=== PATIENT | female | born 1935 | race Caucasian/White ===

== ENCOUNTER 2017-04-23 10:28 | Inpatient (IN) | payer MEDICARE, OTHER ==
[~2017-04-23] VITALS: Ht 167.6 cm; Wt 65.0 kg
[2017-04-23] VITALS (7 sets, daily range): BP systolic 152–194; BP diastolic 71–92; PULSE 50–72; RESP 17–18; TEMP 98; Ht 167.6 cm; Wt 65.0 kg
[2017-04-23] MEDS ORDERED: PIPER-TAZO 3.375 GM IV (PMX) 100 ML ONE (10:57)
[2017-04-23] MEDS ORDERED: VANCOMYCIN 1 GM (PMX) 250 ML ONE (10:57)
[2017-04-23] MEDS ORDERED: LORAZEPAM 2 MG INJ ONE (11:15)
[2017-04-23 11:25] LABS: BASOPHIL # 0.1 10^3/ul (0.0-0.1); BASOPHILS % 0.9 % (0.0-2.0); EOSINOPHILS # 0.1 10^3/ul (0.0-0.5); EOSINOPHILS % 1.7 % (0.0-7.0); HEMATOCRIT 33.2 % (37.0-47.0); HEMOGLOBIN 10.8 g/dl (12.0-16.0); LYMPHOCYTES # 2.7 10^3/ul (0.8-2.9); MEAN CORPUSCULAR HEMOGLOBIN 31.1 pg (29.0-33.0); MEAN CORPUSCULAR HGB CONC 32.5 g/dl (32.0-37.0); MEAN CORPUSCULAR VOLUME 95.7 fl (82.0-101.0); MEAN PLATELET VOLUME 12.6 fl (7.4-10.4); MONOCYTE # 0.9 10^3/ul (0.3-0.9); NUCLEATED RED BLOOD CELLS% 0.5 /100WBC (0.0-0.0); PLATELET COUNT 306 10^3/UL (140-415); RED BLOOD COUNT 3.47 10^6/ul (4.20-5.40); RED CELL DISTRIBUTION WIDTH 17.8 % (11.5-14.5); WHITE BLOOD COUNT 7.7 10^3/ul (4.8-10.8)
[2017-04-23] MEDS ORDERED: PIPER-TAZO 3.375 GM IV (PMX) 100 ML IVPB ONE (11:30)
[2017-04-23] MEDS ORDERED: VANCOMYCIN 1 GM in NS 250 ML IVPB SCH (11:30)
[2017-04-23] MEDS ORDERED: LORAZEPAM 2 MG INJ IV SCH (11:30)
[2017-04-23 11:52] LABS: INR 1.29; PROTIME 16.2 Sec (12.2-14.2); PT RATIO 1.3
[2017-04-23 11:53] LABS: PARTIAL THROMBOPLASTIN TIME 33.2 Sec (25.0-35.0)
[2017-04-23] MEDS ORDERED: SOD CHLORIDE 0.9% 1,000 ML IV STA ×2 (11:59)
[2017-04-23 12:00] LABS: CALCIUM 8.5 mg/dl (8.4-10.2); CREATININE 1.48 mg/dl (0.44-1.00); POTASSIUM 4.6 mmol/L (3.5-5.1)
[2017-04-23 12:11] LABS: TROPONIN-I 0.022 ng/ml (0.00-0.12)
--- NOTE | 2017-04-23 12:19 | RADRPT ---
PROCEDURE: XR Chest. CLINICAL INDICATION: Shortness of breath. TECHNIQUE: Single frontal view. COMPARISON: None. FINDINGS: There is bilateral interstitial disease consistent with pulmonary edema. The heart is enlarged. There is calcification in the aorta consistent with atherosclerosis. There is no pleural effusion. There is no pneumothorax. IMPRESSION: 1. Pulmonary edema. 2. Cardiomegaly and atherosclerosis. RPTAT: QQ .Jesu Armando MD, MD Date Time Electronically viewed and signed by .Jesu Armando MD, on 04/23/2017 12:19 .R/
--- NOTE | 2017-04-23 12:25 | ERA ---
ER Documentation Chief Complaint Date/Time DATE: 04/23/17 TIME: 12:22 Chief Complaint SOB HPI Patient is an 81-year-old female with hypertension and diabetes who presents with shortness of breath. She was brought in by ambulance. She had shortness of breath which started this morning. She had respiratory distress as well. She had cough but no fever. She has planned for a valve replacement in her heart next week. She was given oxygen and nitroglycerin by paramedics. Her blood pressure was elevated. Her primary doctor is Dr. Campaign. TORRES All systems reviewed and are negative except as per history of present illness. Allergies Allergies: Coded Allergies: No Known Allergy (Unverified , 04/23/17) PMhx/Soc Positive for hypertension and diabetes Hx Alcohol Use: No Hx Substance Use: No Hx Tobacco Use: No Smoking Status: Never smoker FmHx Family History: diabetes Physical Exam Vitals Vital Signs Date Time Temp Pulse Resp B/P Pulse Ox O2 Delivery O2 Flow Rate FiO2 04/23/17 10:28 101.7 88 32 203/152 88 Physical Exam Const: Moderate distress Head: Atraumatic Eyes: Normal Conjunctiva ENT: Normal External Ears, Nose and Mouth. Neck: Full range of motion..~ No meningismus. Resp: Tachypnea with diffuse rhonchi in all lung marino, accessory muscle use Cardio: Regular rate and rhythm, no murmurs Abd: Soft, non tender, non distended. Normal bowel sounds Skin: Pale skin Back: No midline or flank tenderness Ext: No cyanosis, or edema Neur: Awake and alert Psych: Normal Mood and Affect Result Diagram: 04/23/17 1040 04/23/17 1040 Results 24 hrs Laboratory Tests Test 04/23/17 10:40 White Blood Count 7.710^3/ul Red Blood Count 3.4710^6/ul Hemoglobin 10.8g/dl Hematocrit 33.2% Mean Corpuscular Volume 95.7fl Mean Corpuscular Hemoglobin 31.1pg Mean Corpuscular Hemoglobin Concent 32.5g/dl Red Cell Distribution Width 17.8% Platelet Count 03210^3/UL Mean Platelet Volume 12.6fl Neutrophils % 50.0% Lymphocytes % 35.0% Monocytes % 12.0% Eosinophils % 1.7% Basophils % 0.9% Nucleated Red Blood Cells % 0.5/100WBC Neutrophils # (Manual) 410^3/ul Lymphocytes # 2.710^3/ul Monocytes # 0.910^3/ul Eosinophils # 0.110^3/ul Basophils # 0.110^3/ul Nucleated Red Blood Cells # 0.010^3/ul Prothrombin Time 16.2Sec Prothrombin Time Ratio 1.3 INR International Normalized Ratio 1.29 Activated Partial Thromboplast Time 33.2Sec Sodium Level 137mmol/L Potassium Level 4.6mmol/L Chloride Level 98mmol/L Carbon Dioxide Level 29mmol/L Anion Gap 15 Blood Urea Nitrogen 26mg/dl Creatinine 1.48mg/dl Glucose Level 269mg/dl Lactic Acid Level 2.5mmol/L Calcium Level 8.5mg/dl Troponin I 0.022ng/ml Current Medications Medications (Trade) Dose Ordered Sig/Chato Route PRN Reason Start Time Stop Time Status Last Admin Dose Admin Vancomycin HCl 250 ml @ 125 mls/hr ONCE IVPB 04/23/17 11:30 04/23/17 13:29 04/23/17 12:07 Piperacillin Sod/ Tazobactam Sod (Zosyn 3.375gm/ 100 ml (Pmx)) 100 ml @ 200 mls/hr ONCE ONCE IVPB 04/23/17 11:30 04/23/17 11:59 DC 04/23/17 12:07 Lorazepam 1 mg 1 mg ONCE IV 04/23/17 11:30 04/23/17 11:31 DC 04/23/17 12:07 Sodium Chloride 1,000 ml @ 1,000 mls/hr Q1H STAT IV 04/23/17 11:59 04/23/17 12:58 Sodium Chloride (NS) 1,000 ml @ 1,000 mls/hr Q1H STAT IV 04/23/17 11:59 04/23/17 12:58 Ondansetron HCl (Zofran Inj) 4 mg ER BRIDGE PRN IV NAUSEA AND/OR VOMITING 04/23/17 12:30 04/24/17 12:29 Acetaminophen (Tylenol Tab) 650 mg ER BRIDGE PRN PO MILD PAIN/FEVER 04/23/17 12:30 04/24/17 12:29 Procedures/MDM EKG read by me: Rate/Rhythm: Regular rate and rhythm at a normal rate Intervals: Normal Impression: No evidence of ischemia or arrhythmia Chest X-ray 1V Interpreted by me: Soft Tissue: No acute abnormalities Bones: No acute abnormalities Mediastinum/Cardiac Silhouette/Lungs: Right sided pneumonia Admit MDM: Patient's infectious symptoms have not stabilized and the patient is at risk of rapid decompensation. The patient will be admitted for careful hydration, antibiotic therapy, and infectious source control. Severe Sepsis criteria: Infectious source: Pneumonia End organ damage indicated by: Lactate greater than 2 Sepsis Management: Time of recognition of sepsis: 10:40 AM Within 3 hours of recognition: Blood cultures x 2 before broad-spectrum antibiotics: Yes 30 ml/kg NS bolus Completed Initial lactate 2.5 Repeat lactate pending Time of recognition of septic shock: No septic shock Septic Shock Assessment: Any lactic acid > 4.0 No Persistent hypotension (SBP < 90 or 40 mmHg drop, MAP < 65) despite 30 mL/kg IV fluid bolus No Volume Re-assessment for Septic Shock (post 30 ml/kg bolus): No septic shock at this time Persistent Hypotension Treatment: Comfort care No Central line Not Required Vasopressor started Not required I considered further perfusion assessment with CVP measurement, SCVO2, bedside ultrasound volume assessment, passive leg raise, trial of further fluid bolus. And proceeded with 30 ml/kg fluid bolus of NSS, broad spectrum antibiotics, and admission. The patient required BiPAP therapy as well given the respiratory distress. Accepting Care Team Current data and ongoing care discussed. Admitting Physician: Dr. Bowers from the panel team Take Away Man(s): None Outstanding Data: Culture results and repeat lactic acid Critical Care: Critical care time 35 minutes excluding all billable procedures Emergent fluid management while maintaining close respiratory support. Provision of immediate and broad-spectrum antibiotic therapy. Simultaneous assessment for possible sources in order to direct targeted therapy. Consideration for invasive and chemical support to prevent cardiopulmonary collapse. Departure Diagnosis: Primary Impression: Pneumonia Qualified Code: J18.9 - Pneumonia of right lung due to infectious organism, unspecified part of lung Additional Impressions: Respiratory distress Severe sepsis Condition: Serious JUNE NAIDU MD Apr 23, 2017 12:21
[2017-04-23] MEDS ORDERED: ACETAMINOPHEN 325 MG TAB PO PRN (12:30)
[2017-04-23] MEDS ORDERED: ONDANSETRON 4 MG INJ IV PRN (12:30)
[2017-04-23 12:34] LABS: Allen Test ACCEPTAB; Arterial Base Excess 3.1 mmol/L (-3.0-3); Arterial COHb 0.3 % (0.0-3.0); Arterial Fraction of Oxyhgb 97.6 % (93.0-99.0); Arterial MetHb 0.2 % (0.0-1.5); Arterial Total Hemglobin 11.4 g/dl (12.0-18.0); Blood Gas IEPAP 10; Blood Gas PS 15/5; MODE MASK - BIPAP
[2017-04-23] MEDS ORDERED: ATOR80TA75 PO (12:37)
[2017-04-23] MEDS ORDERED: LANT3I SC (12:38)
[2017-04-23] MEDS ORDERED: NOVO3I SC (13:08)
[2017-04-23] MEDS ORDERED: IPRA3AMP INHALATION (13:12)
[2017-04-23] MEDS ORDERED: ALBU18HF INHALATION (13:12)
[2017-04-23] MEDS ORDERED: FENO145T19 PO (13:13)
[2017-04-23] MEDS ORDERED: ALLO100T PO (13:13)
[2017-04-23] MEDS ORDERED: LOSA25TA5 PO (13:14)
[2017-04-23] MEDS ORDERED: MAGN400T28 PO (13:15)
[2017-04-23] MEDS ORDERED: CLOP75TA27 PO (13:15)
[2017-04-23] MEDS ORDERED: PANT40TA4 PO (13:17)
[2017-04-23] MEDS ORDERED: ASPI81TA3 PO (13:18)
[2017-04-23] MEDS ORDERED: CARV6.25 PO (13:18)
[2017-04-23] MEDS ORDERED: APIX2.5T PO (13:18)
[2017-04-23] MEDS ORDERED: APIX5TAB PO (13:20)
[2017-04-23] MEDS ORDERED: ACETAMINOPHEN 325 MG TAB PO ONE (13:30)
[2017-04-23] MEDS ORDERED: FUROSEMIDE 40 MG INJ IV ONE (15:00)
[2017-04-23] MEDS ORDERED: VANCOMYCIN IV PER PHARMACY XX SCH (15:00)
--- NOTE | 2017-04-23 17:22 | RADRPT ---
PROCEDURE: CT Chest without contrast. CLINICAL INDICATION: Abnormal chest x-ray. TECHNIQUE: Multiple contiguous helical CT images of the chest were obtained without the administra tion of intravenous contrast. Coronal and sagittal reformatted images were obtained from the source images. CTDIvol (mGy): 12.93; Total Exam DLP (mGy-cm): 501.30. One or more of the following dose reduction techniques were utilized: - Automated exposure control. - Adjustment of the mA and/or kV according to patient size. - Use of iterative reconstruction technique. COMPARISON: Chest x-ray 04/23/2017. CT chest 02/15/2017. FINDINGS: Limited imaging of the lower neck is unremarkable. The heart is enlarged. There is no pericardial effusion. There is no bulky mediastinal, hilar or a xillary lymphadenopathy. Tiny calcified mediastinal and right hilar lymph nodes are present. The t horacic aorta is normal in caliber with atherosclerotic calcification. Aortic valve calcification is observed. Coronary artery calcifications are present. The pulmonary arteries are not enlarged. Small bilateral layering pleural effusions are observed. Mild centrilobular emphysematous changes a re seen within the lung apices. Background smooth interstitial thickening is seen within the upper and lower lungs. Diffuse bronchial wall thickening is present. Mild basilar atelectatic changes ar e observed. Very mild peribronchovascular ground-glass opacification of the pulmonary parenchyma is observed. Limited imaging of the upper abdomen is unremarkable. Degenerative changes of the thoracic spine are present. Chest wall soft tissues are unremarkable. IMPRESSION: Cardiomegaly and mild pulmonary and interstitial edema. Small bilateral layering pleural effusions. Mild emphysematous changes within the lung apices. RPTAT: HLST .Nargis Montejo MD, Date Time Electronically viewed and signed by .Nargis Montejo MD, on 04/23/2017 17:21 .T/
--- NOTE | 2017-04-23 17:29 | HP ---
Date/Time of Note Date/Time of Note DATE: 04/23/17 TIME: 17:20 Assessment/Plan VTE Prophylaxis VTE Prophylaxis Intervention: LMWH, other Assessment/Plan Chief Complaint/Hosp Course 81 yo female with h/o unclear CHF and valve syndrome, DMII, CKD II, gout, hypertension who presents with acute hypoxia respiratory failure and fever Acute hypoxic resipratoyr failure: - Seems overloaded on exam with known CHF. Will diurese, and await TTE results - Pneumonia also quite possible - CT chest is pending Fever: - Suspect pulmonary source as has no other localizing symptoms - Vanco/cefepime for now DMII: - Basal bolus insulin Gout: - Allopurinol CKD III: - Monitor creatinine Atrial fibrilation - Continue Eliquis 2.5 BID Discharge plan pending Problems: HPI/ROS Admit Date/Time Admit Date/Time Apr 23, 2017 at 12:20 Hx of Present Illness 81 yo female with h/o unclear valvular heart disease causing CHF and pending repair at [facility], DMII, gout, hypertension who presents wtih SOB x today Patient has known heart condition, sounds like she is pending a valve procedure at [facility]. She was due to have a CT as part of this workup there today. [place] well until this morning when she developed respriatory symptoms. Has a dry cough. Feels like previous episodes of "water in her lungs". She was found to be febrile here but was suprised to hear this as she doesn't feel infectious symptoms. PMH/Family/Social Family History Significant Family History: no pertinent family hx Social History Alcohol Use: none Smoking Status: Former smoker Exam/Review of Systems Vital Signs Vitals Vital Signs Date Time Temp Pulse Resp B/P Pulse Ox O2 Delivery O2 Flow Rate FiO2 04/23/17 17:00 98.0 53 18 145/81 100 Nasal Cannula 3.0 04/23/17 13:00 50 Exam Exam Elderly female resting comfortably in NAD Pleasatn, apporripate Breathing slightly fast but nonlabored CV: ++++ JVD, 1/6 systolic murmur, regular Lungs with bibasilar crackles, good air entry b/l Abdomen soft Ext with pedal edema b/l Labs Result Diagram: 04/23/17 1040 04/23/17 1040 Medications Medications Current Medications Cefepime HCl (Maxipime 1gm/50 ml (Pmx)) 50 ml @ 100 mls/hr Q12 IVPB ; Start at 21:00 Aspirin (Aspirin) 81 mg DAILY PO ; Start 04/24/17 at 09:00 Carvedilol (Coreg) 6.25 mg BID PO ; Start 04/23/17 at 21:00 Clopidogrel Bisulfate (plaVIX) 75 mg DAILY PO ; Start 04/24/17 at 09:00 Losartan Potassium (Cozaar) 25 mg DAILY PO ; Start 04/24/17 at 09:00 Apixaban (Eliquis) 2.5 mg BID PO ; Start 04/23/17 at 21:00 DAV CASTELLANO MD Apr 23, 2017 17:29
[2017-04-23] MEDS ORDERED: GLUCOSE GEL 15 GRAM TUBE BUCCAL PRN (18:00)
[2017-04-23] MEDS ORDERED: GLUCOSE GEL 15 GRAM TUBE PO PRN ×2 (18:00)
[2017-04-23] MEDS ORDERED: GLUCAGON 1 MG INJ IM PRN (18:00)
[2017-04-23] MEDS ORDERED: DEXTROSE 50% 50 ML SYRINGE IV PRN ×2 (18:00)
[2017-04-23] MEDS: INSULIN ASPART [NOVOLOG] 3 ML PEN SC SCH (18:05)
[2017-04-23] MEDS: APIXABAN 5 MG TABLET PO SCH (21:50)
[2017-04-23] MEDS: CEFEPIME 1GM/50 ML (PMX) 50 ML IVPB SCH (21:50)
[2017-04-23] MEDS ORDERED: INSULIN GLARGINE [LANtus] 3 ML PEN SC SCH (21:57)
[2017-04-23] MEDS ORDERED: hydrALAzine 20 MG INJ IV PRN (23:50)
[2017-04-24] VITALS (12 sets, daily range): BP systolic 151–187; BP diastolic 71–88; PULSE 59–100; RESP 18–20
[2017-04-24] MEDS ORDERED: INSULIN GLARGINE [LANtus] 3 ML PEN SC ONE (01:00)
[2017-04-24] MEDS ORDERED: FUROSEMIDE 40 MG INJ IV ONE (01:00)
[2017-04-24] MEDS: ALBUTEROL/IPRATROPIUM (NEB) 3 ML AMP HHN SCH ×3 (01:35→14:38)
[2017-04-24] MEDS ORDERED: ACCU-CHEK XX SCH ×2 (02:00)
[2017-04-24] MEDS: FUROSEMIDE 40 MG INJ IV SCH ×2 (06:13→17:28)
[2017-04-24] MEDS ORDERED: PANTOPRAZOLE (EC) 40 MG TAB PO SCH (07:00)
[2017-04-24] MEDS ORDERED: INSULIN GLARGINE [LANtus] 3 ML PEN SC SCH (08:00)
[2017-04-24] MEDS: INSULIN ASPART [NOVOLOG] 3 ML PEN SC SCH ×6 (08:00→17:34)
[2017-04-24 08:25] LABS: BASOPHILS % 0.5 % (0.0-2.0); EOSINOPHILS # 0.1 10^3/ul (0.0-0.5); EOSINOPHILS % 1.5 % (0.0-7.0); HEMATOCRIT 30.8 % (37.0-47.0); LYMPHOCYTES # 1.7 10^3/ul (0.8-2.9); LYMPHOCYTES % 22.5 % (15.0-51.0); MEAN CORPUSCULAR HEMOGLOBIN 30.7 pg (29.0-33.0); MEAN CORPUSCULAR HGB CONC 32.5 g/dl (32.0-37.0); MEAN CORPUSCULAR VOLUME 94.5 fl (82.0-101.0); MEAN PLATELET VOLUME 12.6 fl (7.4-10.4); MONOCYTE # 0.9 10^3/ul (0.3-0.9); MONOCYTES % 12.2 % (0.0-11.0); NUCLEATED RED BLOOD CELLS% 0.5 /100WBC (0.0-0.0); PLATELET COUNT 286 10^3/UL (140-415); RED BLOOD COUNT 3.26 10^6/ul (4.20-5.40); RED CELL DISTRIBUTION WIDTH 17.7 % (11.5-14.5); WHITE BLOOD COUNT 7.5 10^3/ul (4.8-10.8)
[2017-04-24] MEDS: APIXABAN 5 MG TABLET PO SCH ×2 (08:26→20:13)
[2017-04-24] MEDS: CEFEPIME 1GM/50 ML (PMX) 50 ML IVPB SCH ×2 (09:00→10:20)
[2017-04-24] MEDS ORDERED: ASPIRIN 81 MG TAB PO SCH (09:00)
[2017-04-24] MEDS ORDERED: CLOPIDOGREL 75 MG TAB PO SCH (09:00)
[2017-04-24] MEDS ORDERED: LOSARTAN 25 MG TAB PO SCH (09:00)
[2017-04-24 09:07] LABS: ALBUMIN 3.3 g/dl (3.3-4.9); BILIRUBIN,INDIRECT 0.3 mg/dl (0-1.1); BILIRUBIN,TOTAL 0.3 mg/dl (0.2-1.3); CALCIUM 9.1 mg/dl (8.4-10.2); CREATININE 1.54 mg/dl (0.44-1.00); POTASSIUM 4.1 mmol/L (3.5-5.1); TOTAL PROTEIN 6.6 g/dl (6.1-8.1)
--- NOTE | 2017-04-24 11:14 | PN ---
Date/Time of Note Date/Time of Note DATE: 04/24/17 TIME: 11:09 Assessment/Plan VTE Prophylaxis VTE Prophylaxis Intervention: LMWH, other Lines/Catheters IV Catheter Type (from Nrs): Saline Lock Urinary Cath still in place: No Assessment/Plan Chief Complaint/Hosp Course 81 yo female with h/o unclear CHF and valve syndrome but likely , DMII, CKD II , gout, hypertension who presents with acute hypoxic respiratory failure and fever of unclear origin Acute hypoxic resipratory failure, now resolved, 2/2 acute diastolic CHF exacerbation - Seems like she had flash pulmonary edema 2/2 what i suspect is - She is pending valve repair at [facility] by a Dr Ohara. Will try to coordinate care - CT chest showed pulmonary edema but no pneumonia Fever: - No localizing source - Await culture results, TTE to look for vegetations - Continue abx for now DMII: - Basal bolus insulin Gout: - Allopurinol CKD III: - Monitor creatinine Atrial fibrilation - Continue Eliquis 2.5 BID Discharge plan pending Problems: Subjective 24 Hr Interval Summary Free Text/Dictation Much better today, feel back to normal Breathing unlabored, off of oxygen and stable on RA Says she is waiting to have some sort of cardiac valve procedure at [facility] by Dr Ohaar. Was being worked up for this when she developed acute SOB yesterday Denies any localizing complaints to suggest source of her fever Exam/Review of Systems Vital Signs Vitals Vital Signs Date Time Temp Pulse Resp B/P Pulse Ox O2 Delivery O2 Flow Rate FiO2 04/24/17 08:31 65 04/24/17 08:03 98.5 20 152/74 99 04/24/17 07:51 Nasal Cannula 3.0 04/23/17 13:00 50 Intake and Output 04/23/17 04/23/17 04/24/17 14:59 22:59 06:59 Intake Total 350 ml Balance 350 ml Exam Well appearing, NAD, AOx3 Pleastant, apporpriate. 98% on RA, nonlabored, speaking full sentences 2/6 systolic murmur w radiation to clavicles/neck, no regurgitatant murmur ++ JVD No perihperal edema Results Result Diagram: 04/24/17 0728 04/24/17 0728 Results 24 hrs Laboratory Tests Test 04/23/17 11:18 04/23/17 17:47 04/23/17 21:46 04/23/17 22:53 Blood Gas Specimen Source Blood arterial Arterial Blood Date Drawn 04/23/2017 11:18:00 AM Arterial Blood pH (Temp corrected) 7.375 Arterial Blood pCO2 (Temp correct) 50.8 H Arterial Blood pO2 (Temp corrected) 131.4 H Arterial Blood HCO3 29.0 H Arterial Blood Base Excess 3.1 H Arterial Blood Oxygen Saturation 98.1 Tony Test ACCEPTAB Arterial Blood Gas Puncture Site Left Radial Arterial Blood Carboxyhemoglobin 0.3 Arterial Blood Methemoglobin 0.2 Blood Gas A-a O2 Differential 168.0 H Oxyhemoglobin Percent 97.6 Total Hemoglobin 11.4 L Blood Gas Temperature 37.0 Blood Gas Respiration Rate 14.0 Blood Gas Actual Respiration Rate 24 Blood Gas Modality MASK - BIPAP FiO2 50.0 Blood Gas Pressure Support 15/5 Blood Gas IPAP/EPAP Ratio 10 Blood Gas Notified Whom MA Blood Gas Notified Time 04/23/2017 11:25:00 AM Bedside Glucose 102 211 267 H Test 04/24/17 00:52 04/24/17 07:28 04/24/17 08:22 Bedside Glucose 224 H 124 White Blood Count 7.5 Red Blood Count 3.26 L Hemoglobin 10.0 L Hematocrit 30.8 L Mean Corpuscular Volume 94.5 Mean Corpuscular Hemoglobin 30.7 Mean Corpuscular Hemoglobin Concent 32.5 Red Cell Distribution Width 17.7 H Platelet Count 286 Mean Platelet Volume 12.6 H Neutrophils % 63.0 Lymphocytes % 22.5 Monocytes % 12.2 H Eosinophils % 1.5 Basophils % 0.5 Nucleated Red Blood Cells % 0.5 H Neutrophils # (Manual) 5 Lymphocytes # 1.7 Monocytes # 0.9 Eosinophils # 0.1 Basophils # 0.0 Nucleated Red Blood Cells # 0.0 Sodium Level 137 Potassium Level 4.1 Chloride Level 100 Carbon Dioxide Level 30 Anion Gap 11 Blood Urea Nitrogen 28 H Creatinine 1.54 H Glucose Level 158 # Calcium Level 9.1 Total Bilirubin 0.3 Direct Bilirubin 0.00 Indirect Bilirubin 0.3 Aspartate Amino Transf (AST/SGOT) 23 Alanine Aminotransferase (ALT/SGPT) 26 Alkaline Phosphatase 145 H Total Protein 6.6 Albumin 3.3 Globulin 3.30 H Albumin/Globulin Ratio 1.00 Medications Medications Current Medications Aspirin (Aspirin) 81 mg DAILY PO Last administered on 04/24/17 08:23; Admin Dose 81 MG; Start 04/24/17 at 09:00 Carvedilol (Coreg) 6.25 mg BID PO Last administered on 04/24/17 08:25; Admin Dose 6.25 MG; Start 04/23/17 at 21:00 Clopidogrel Bisulfate (plaVIX) 75 mg DAILY PO Last administered on 04/24/17 08 :23; Admin Dose 75 MG; Start 04/24/17 at 09:00 Losartan Potassium (Cozaar) 25 mg DAILY PO Last administered on 04/24/17 08:25 ; Admin Dose 25 MG; Start 04/24/17 at 09:00 Apixaban (Eliquis) 2.5 mg BID PO Last administered on 04/24/17 08:26; Admin Dose 2.5 MG; Start 04/23/17 at 21:00 Diagnostic Test (Pha) (Accu-Chek) 1 ea 02 XX ; Start 04/24/17 at 02:00 Miscellaneous Information 1 ea NOTE XX ; Start 04/23/17 at 18:00 Glucose (Glutose) 15 gm Q15M PRN PO DECREASED GLUCOSE; Start 04/23/17 at 18:00 Glucose (Glutose) 22.5 gm Q15M PRN PO DECREASED GLUCOSE; Start 04/23/17 at 18: 00 Dextrose (D50w Syringe) 25 ml Q15M PRN IV DECREASED GLUCOSE; Start 04/23/17 at 18:00 Dextrose (D50w Syringe) 50 ml Q15M PRN IV DECREASED GLUCOSE; Start 04/23/17 at 18:00 Glucagon (Glucagen) 1 mg Q15M PRN IM DECREASED GLUCOSE; Start 04/23/17 at 18:00 Glucose (Glutose) 15 gm Q15M PRN BUCCAL DECREASED GLUCOSE; Start 04/23/17 at 18 :00 Insulin Glargine (Lantus) 13 unit QHS SC Last administered on 04/23/17 23:05; Admin Dose 13 UNIT; Start 04/23/17 at 21:57 Hydralazine HCl 10 mg 10 mg Q6H PRN IV ELEVATED SYSTOLIC BP Last administered on 04/24/17 00:25; Admin Dose 10 MG; Start 04/23/17 at 23:50 Cefepime HCl 50 ml @ 100 mls/hr Q24H IVPB ; Start 04/25/17 at 09:00 Vancomycin HCl (Vancocin) 100 ml @ 100 mls/hr Q24H IVPB ; Start 04/24/17 at 12: 00 DAV CASTELLANO MD Apr 24, 2017 11:14
[2017-04-24] MEDS ORDERED: VANCOMYCIN 500MG/NS (PMX) 100 ML IVPB SCH (12:00)
--- NOTE | 2017-04-24 17:01 | DS ---
Date/Time of Note Date/Time of Note DATE: 04/24/17 TIME: 16:58 Discharge Summary Admission/Discharge Info Admit Date/Time Apr 23, 2017 at 12:20 Discharge Date/Time Hx of Present Illness 81 yo female with h/o unclear valvular heart disease causing CHF and pending repair at [facility], DMII, gout, hypertension who presents wtih SOB x today Patient has known heart condition, sounds like she is pending a valve procedure at [facility]. She was due to have a CT as part of this workup there today. [place] well until this morning when she developed respriatory symptoms. Has a dry cough. Feels like previous episodes of "water in her lungs". She was found to be febrile here but was suprised to hear this as she doesn't feel infectious symptoms. Hospital Course 81 yo female with h/o unclear CHF and valve syndrome but likely , DMII, CKD II , gout, hypertension who presents with acute hypoxic respiratory failure and fever of unclear origin Acute hypoxic resipratory failure, now resolved, 2/2 acute diastolic CHF exacerbation. Seems like she had flash pulmonary edema 2/2 what i suspect is . She received BIPAP and lasix and improved to baseline immediately. She is pending valve repair at [facility] by a Dr Ohara who was contacted and arranged for her to be transferred there. Will try to coordinate . CT chest showed pulmonary edema but no pneumonia Fever. No localizing source was found. Blood cultures were negative at 24 hours at time of transfer. She was given vancomycin and cefepime and fever did not recur. DMII: Controlled with her home dose of insulin Home Meds Reported Medications Apixaban* (Eliquis*) 2.5 Mg Tablet, 2.5 MG PO BID, TAB 04/23/17 Carvedilol* (Coreg*) 6.25 Mg Tablet, 6.25 MG PO BID, #60 TAB 04/23/17 Aspirin* (Aspirin* Chew) 81 Mg Tab.chew, 81 MG PO DAILY, TAB.CHEW 04/23/17 Pantoprazole* (Pantoprazole*) 40 Mg Tablet.dr, 40 MG PO AC BREAKFAST, TAB 04/23/17 Clopidogrel Bisulfate (Clopidogrel) 75 Mg Tablet, 75 MG PO DAILY, #30 TAB 04/23/17 Magnesium Oxide* (Magnesium Oxide*) 400 Mg Tablet, 400 MG PO DAILY, TAB 04/23/17 Losartan Potassium* (Losartan Potassium*) 25 Mg Tablet, 25 MG PO DAILY, TAB 04/23/17 Allopurinol* (Allopurinol*) 100 Mg Tablet, 150 MG PO DAILY, TAB 04/23/17 Fenofibrate Nanocrystallized* (Fenofibrate*) 145 Mg Tablet, 145 MG PO DAILY, TAB 04/23/17 Albuterol Sulfate* (Ventolin HFA*) 18 Gm Hfa.aer.ad, 2 PUFF INHALATION Q4H Y for WHEEZING AND SOB, #1 INHALER 04/23/17 Ipratropium-Albuterol (Ipratropium-Albuterol) 0.5-3 Mg/3 Ml Ampul.neb, 1 VIAL INHALATION Q6 Y for WHEEZING AND SOB, #30 VIAL 04/23/17 Insulin Aspart* (Novolog Insulin Pen*) 100 Unit/Ml Soln, 0 SC .SLIDING SCALE AC , EA 04/23/17 Insulin Glargine* (Lantus*) 100 Unit/Ml Soln, 25 UNIT SC QHS, #1 VIAL 04/23/17 Atorvastatin* (Atorvastatin*) 80 Mg Tablet, 80 MG PO QHS, #30 TAB 04/23/17 Discontinued Reported Medications Apixaban* (Eliquis*) 5 Mg Tablet, 10 MG PO BID, TAB 04/23/17 Primary Care Provider Sanjiv Lynne Time spent on discharge: > 30 minutes Pending Labs Laboratory Tests Test 04/23/17 17:47 04/23/17 21:46 04/23/17 22:53 04/24/17 00:52 Bedside Glucose 102mg/dL (70-220) 211mg/dL (70-220) 267mg/dL (70-220) 224mg/dL (70-220) Test 04/24/17 07:28 04/24/17 08:22 04/24/17 12:07 White Blood Count 7.510^3/ul (4.8-10.8) Red Blood Count 3.2610^6/ul (4.20-5.40) Hemoglobin 10.0g/dl (12.0-16.0) Hematocrit 30.8% (37.0-47.0) Mean Corpuscular Volume 94.5fl (82.0-101.0) Mean Corpuscular Hemoglobin 30.7pg (29.0-33.0) Mean Corpuscular Hemoglobin Concent 32.5g/dl (32.0-37.0) Red Cell Distribution Width 17.7% (11.5-14.5) Platelet Count 74466^3/UL (140-415) Mean Platelet Volume 12.6fl (7.4-10.4) Neutrophils % 63.0% (39.0-77.0) Lymphocytes % 22.5% (15.0-51.0) Monocytes % 12.2% (0.0-11.0) Eosinophils % 1.5% (0.0-7.0) Basophils % 0.5% (0.0-2.0) Nucleated Red Blood Cells % 0.5/100WBC (0.0-0.0) Neutrophils # (Manual) 510^3/ul (1.7-7.5) Lymphocytes # 1.710^3/ul (0.8-2.9) Monocytes # 0.910^3/ul (0.3-0.9) Eosinophils # 0.110^3/ul (0.0-0.5) Basophils # 0.010^3/ul (0.0-0.1) Nucleated Red Blood Cells # 0.010^3/ul (0.0-0.0) Sodium Level 137mmol/L (135-144) Potassium Level 4.1mmol/L (3.5-5.1) Chloride Level 100mmol/L (97-110) Carbon Dioxide Level 30mmol/L (21-31) Anion Gap 11 (8-16) Blood Urea Nitrogen 28mg/dl (7-20) Creatinine 1.54mg/dl (0.44-1.00) Glucose Level 158mg/dl (70-220) Calcium Level 9.1mg/dl (8.4-10.2) Total Bilirubin 0.3mg/dl (0.2-1.3) Direct Bilirubin 0.00mg/dl (0.00-0.20) Indirect Bilirubin 0.3mg/dl (0-1.1) Aspartate Amino Transf (AST/SGOT) 23IU/L (15-46) Alanine Aminotransferase (ALT/SGPT) 26IU/L (13-69) Alkaline Phosphatase 145IU/L (42-121) Total Protein 6.6g/dl (6.1-8.1) Albumin 3.3g/dl (3.3-4.9) Globulin 3.30g/dl (1.3-3.2) Albumin/Globulin Ratio 1.00 Bedside Glucose 124mg/dL (70-220) 79mg/dL (70-220) DAV CASTELLANO MD Apr 24, 2017 17:00
[2017-04-24] MEDS ORDERED: VANCOMYCIN 1 GM in NS 250 ML IVPB SCH (18:00)
[2017-04-25] MEDS ORDERED: CEFEPIME 1GM/50 ML (PMX) 50 ML IVPB SCH (09:00)
== END 2017-04-24 20:26 | disposition short-term general hospital (02) | DRG 291 ==
LOC: E/R 10:28 → MS4 12:20
PROVIDERS: ADMIT Internal Medicine; ATTEND Internal Medicine
DX: I13.0 Hypertensive heart and chronic kidney disease with heart failure and stage 1 through stage 4 chronic kidney disease, or unspecified chronic kidney disease (principal); J96.01 Acute respiratory failure with hypoxia; I50.33 Acute on chronic diastolic (congestive) heart failure; N18.2 Chronic kidney disease, stage 2 (mild); M10.9 Gout, unspecified; I35.0 Nonrheumatic aortic (valve) stenosis; E11.9 Type 2 diabetes mellitus without complications
CPT/HCPCS: 36600; 71010; 71250; 80048; 80053; 82803; 82962; 83605; 84484; 85025; 85610; 85730; 87040; 93005; 93306; 94640; 94660; 94664; 96374; 96375; J0360; J0692; J1815; J1940; J2060; J2543; J3370; J7030